=== PATIENT | male | born 1980 | race Caucasian/White ===

== ENCOUNTER 2018-12-05 21:03 | Emergency (ER) | payer SELFPAY ==
[~2018-12-05] VITALS: Ht 185.4 cm; Wt 86.4 kg
[2018-12-05 21:08] VITALS: Ht 185.4 cm; Wt 86.4 kg
[2018-12-05 22:27] LABS: BASOPHILS 0.5 % (0-2); EOSINOPHILS 1.7 % (0-7); HEMATOCRIT 43.7 % (42.0-54.0); HEMOGLOBIN 15.2 g/dL (13.5-17.5); IMMATURE GRANULOCYTES 0.3 % (0-5); LYMPHOCYTES 30.6 % (15-50); MCH 31.2 pg (26.0-34.0); MCHC 34.8 g/dL (31.0-37.0); MCV 89.7 fL (80.0-100.0); MEAN PLATELET VOLUME 9.7 fL (7.4-10.4); MONOCYTES 9.9 % (2-11); PLATELET COUNT 397 10x3/uL (130-400); RBC 4.87 10x6/uL (4.20-6.10); RDW 13.8 % (11.5-14.5); WBC 10.9 10x3/uL (4.8-10.8)
[2018-12-05 22:38] LABS: ALBUMIN 4.2 g/dL (3.4-5.0); ANION GAP 16.2 mmol/L (8-16); BILIRUBIN - TOTAL 0.77 mg/dL (0.2-1.3); CALCIUM 8.9 mg/dL (8.5-10.1); CARBON DIOXIDE 25.4 mmol/L (21.0-32.0); CREATININE - SERUM 1.3 mg/dL (0.6-1.3); MAGNESIUM - SERUM 1.9 mg/dL (1.8-2.4); POTASSIUM - SERUM 3.6 mmol/L (3.5-5.1); PROTEIN - SERUM 7.8 g/dL (6.4-8.2)
[2018-12-06 06:33] VITALS: BP 130/71
== END 2018-12-06 06:34 | disposition home or self-care (01) ==
LOC: D.ER 21:03
PROVIDERS: Family Medicine
DX: F23 Brief psychotic disorder (principal); F19.10 Other psychoactive substance abuse, uncomplicated; F17.200 Nicotine dependence, unspecified, uncomplicated